=== PATIENT | female | born 1940 | race Hispanic/Latino ===

== ENCOUNTER 2019-05-25 13:59 | Inpatient (IN) | payer MEDICARE ==
--- NOTE | 2019-05-25 14:15 | Event Note ---
ED Screening Note Date of service: 05/25/19 Time: 14:12 ED Screening Note: 79 y/o female c/o swollen feet and legs. Having SOB. Was sent from Urgent care. This initial assessment/diagnostic orders/clinical plan/treatment(s) is/are subject to change based on patients health status, clinical progression and re- assessment by fellow clinical providers in the ED. Further treatment and workup at subsequent clinical providers discretion. Patient/guardian urged not to elope from the ED as their condition may be serious if not clinically assessed and managed. Initial orders include:
--- NOTE | 2019-05-25 15:01 | XRay Report ---
CHEST 2 VIEWS INDICATION / CLINICAL INFORMATION: sob. COMPARISON: None available. FINDINGS: SUPPORT DEVICES: None. HEART / MEDIASTINUM: Borderline cardiomegaly. LUNGS / PLEURA: Mild pulmonary vascular congestion but without yo interstitial pulmonary edema. No pneumothorax. No evidence of pneumonia or significant pleural effusion. ADDITIONAL FINDINGS: No significant additional findings. IMPRESSION: 1. Borderline cardiomegaly with mild pulmonary vascular congestion. Signer Name: Elaine Orosco MD Signed: 05/25/2019 2:56 PM Workstation Name: [id number]
[2019-05-25 15:06] LABS: Hematocrit 47.2 % (30.3-42.9); Hemoglobin 15.1 gm/dl (10.1-14.3); Mean Corpuscular HGB Conc 32 % (30-34); Mean Corpuscular Volume 88 fl (79-97); Platelet Count 223 K/mm3 (140-440); Red Blood Count 5.39 M/mm3 (3.65-5.03); Red Cell Distribution Width 15.8 % (13.2-15.2)
--- NOTE | 2019-05-25 15:19 | Emergency Department Report ---
ED General Adult HPI - General Chief complaint: Dyspnea/Respdistress Stated complaint: HEART RATE/DB Time Seen by Provider: 05/25/19 14:12 Source: patient Mode of arrival: Ambulatory Limitations: No Limitations - History of Present Illness Initial comments: This is an 79-year-old female who I believe is in residence in assisted living. She was brought to a local clinic by her denture laboratory technician today for evaluation of leg swelling of approximately 3 days' duration. The patient doesn't report acute dyspnea to me. She has not experienced paroxysmal nocturnal dyspnea. She occasionally does have chest pain but not recently. She reports a history of angioplasty 9 years ago but no history of congestive heart failure or venous thromboembolism. She states that both her legs are painful and swollen, particularly the left is worse. -: Gradual, days(s) Location: lower extremity Radiation: non-radiation Quality: aching Consistency: intermittent Worsens with: none Associated Symptoms: denies other symptoms Treatments Prior to Arrival: none - Related Data Home Medications Medication Instructions Recorded Confirmed Last Taken Aspirin EC [Halfprin EC] 81 mg PO QDAY 05/14/15 05/14/15 05/14/15 05:00 Allergies Allergy/AdvReac Type Severity Reaction Status Date / Time DEONDRE Inhibitors Allergy Severe Anaphylaxis Verified 05/14/15 07:00 diazepam [From Valium] Allergy Severe deep Verified 05/14/15 06:41 depression ED Review of Systems ROS: Stated complaint: HEART RATE/DB Other details as noted in HPI Constitutional: denies: chills, fever Eyes: denies: eye pain, eye discharge, vision change ENT: denies: ear pain, throat pain Respiratory: denies: cough, shortness of breath, wheezing Cardiovascular: edema. denies: chest pain, palpitations Endocrine: no symptoms reported Gastrointestinal: denies: abdominal pain, nausea, diarrhea Genitourinary: denies: urgency, dysuria, discharge Musculoskeletal: as per HPI, other. denies: back pain, joint swelling, arthralgia Skin: denies: rash, lesions Neurological: denies: headache, weakness, paresthesias Psychiatric: denies: anxiety, depression Hematological/Lymphatic: denies: easy bleeding, easy bruising ED Past Medical Hx - Past Medical History Previous Medical History?: Yes Hx Hypertension: Yes (1994, quit 2010 can't afford) Hx Heart Attack/AMI: Yes (08/2010) Hx Congestive Heart Failure: No - Surgical History Past Surgical History?: Yes Hx Coronary Stent: Yes (x1) - Social History Smoking Status: Current Every Day Smoker Substance Use Type: None - Medications Home Medications: Home Medications Medication Instructions Recorded Confirmed Last Taken Type Aspirin EC [Halfprin EC] 81 mg PO QDAY 05/14/15 05/14/15 05/14/15 05:00 History ED Physical Exam - General Limitations: No Limitations General appearance: alert, in no apparent distress - Head Head exam: Present: atraumatic, normocephalic - Eye Eye exam: Present: normal appearance - ENT ENT exam: Present: mucous membranes moist, other (facial drooping on left) - Neck Neck exam: Present: normal inspection. Absent: tenderness, meningismus - Respiratory Respiratory exam: Present: normal lung sounds bilaterally. Absent: respiratory distress - Cardiovascular Cardiovascular Exam: Present: regular rate, normal rhythm. Absent: systolic murmur, diastolic murmur, rubs, gallop - GI/Abdominal GI/Abdominal exam: Present: soft, normal bowel sounds. Absent: distended, tenderness, guarding, rebound, rigid - Extremities Exam Extremities exam: Present: normal capillary refill, other (bilateral leg swelling left side greater than right, circumferential, ankle edema, no yo cord or calf tenderness noted) - Back Exam Back exam: Present: normal inspection - Neurological Exam Neurological exam: Present: alert, oriented X3. Absent: CN II-XII intact (partial left facial paresis), motor sensory deficit - Psychiatric Psychiatric exam: Present: normal affect, normal mood - Skin Skin exam: Present: warm, dry, intact, normal color. Absent: rash ED Course Vital Signs 05/25/19 14:12 Temperature 97.7 F Pulse Rate 87 Respiratory 22 Rate Blood Pressure 205/104 O2 Sat by Pulse 97 Oximetry ED Medical Decision Making - Lab Data Result diagrams: 05/25/19 14:42 05/25/19 14:42 Laboratory Results - last 24 hr 05/25/19 05/25/19 05/25/19 14:42 14:42 14:42 WBC 8.6 RBC 5.39 H Hgb 15.1 H Hct 47.2 H MCV 88 MCH 28 MCHC 32 RDW 15.8 H Plt Count 223 Lymph % (Auto) Marking Machine Operator [place] % (Auto) Marking Machine Operator Eos % (Auto) Marking Machine Operator Baso % (Auto) Marking Machine Operator Lymph # Marking Machine Operator [place] # Marking Machine Operator Eos # Marking Machine Operator Baso # Marking Machine Operator Seg Neutrophils % Marking Machine Operator Seg Neutrophils # Marking Machine Operator PT INR APTT Sodium 141 Potassium 3.9 Chloride 103.8 Carbon Dioxide 24 Anion Gap 17 BUN 15 Creatinine 0.6 L Estimated GFR > 60 BUN/Creatinine Ratio 25 Glucose 131 H Calcium 9.1 Total Bilirubin 0.40 AST 17 ALT 13 Alkaline Phosphatase 82 Total Creatine Kinase 64 CK-MB (CK-2) 2.9 CK-MB (CK-2) Rel Index 4.5 H Troponin T NT-Pro-B Natriuret Pep 77493 H Total Protein 7.2 Albumin 3.8 L Albumin/Globulin Ratio 1.1 05/25/19 05/25/19 14:42 15:25 WBC RBC Hgb Hct MCV MCH MCHC RDW Plt Count Lymph % (Auto) [place] % (Auto) Eos % (Auto) Baso % (Auto) Lymph # [place] # Eos # Baso # Seg Neutrophils % Seg Neutrophils # PT 15.4 H INR 1.25 H APTT 29.7 Sodium Potassium Chloride Carbon Dioxide Anion Gap BUN Creatinine Estimated GFR BUN/Creatinine Ratio Glucose Calcium Total Bilirubin AST ALT Alkaline Phosphatase Total Creatine Kinase CK-MB (CK-2) CK-MB (CK-2) Rel Index Troponin T < 0.010 NT-Pro-B Natriuret Pep Total Protein Albumin Albumin/Globulin Ratio - EKG Data -: EKG Interpreted by Me EKG shows normal: sinus rhythm, axis, intervals, ST-T waves - EKG Data Interpretation: other (bundle-branch block) - Radiology Data Radiology results: report reviewed (no no DVT, chest x-ray with cardiomegaly and pulmonary venous congestion), image reviewed Critical care attestation.: If time is entered above; I have spent that time in minutes in the direct care of this critically ill patient, excluding procedure time. ED Disposition Clinical Impression: New onset of congestive heart failure, Left bundle branch block, Leg edema Disposition: OP ADMIT IP TO THIS HOSP Is pt being admited?: Yes Does the pt Need Aspirin: Yes Condition: Stable Time of Disposition: 17:28
[2019-05-25 15:27] LABS: Alanine Aminotransferase 13 units/L (7-56); Albumin 3.8 g/dL (3.9-5); BUN/Creatinine Ratio 25; Blood Urea Nitrogen 15 mg/dL (7-17); Calcium 9.1 mg/dL (8.4-10.2); Hemolysis Index 28
[2019-05-25 15:49] LABS: INR 1.25 (0.87-1.13)
[2019-05-25 15:50] LABS: Partial Thromboplastin Time 29.7 Sec. (24.2-36.6)
[2019-05-25 16:05] LABS: Creatine Kinase MB 2.9 ng/mL (0.0-4.0)
--- NOTE | 2019-05-25 16:40 | Vascular Lab Report ---
DUPLEX DOPPLER LOWER EXTREMITY VEINS, BILATERAL INDICATION: Bilateral lower extremity pain and swelling for 2 days. TECHNIQUE: Duplex doppler imaging was performed through the veins of both lower extremities using venous clari abeba and other maneuvers. COMPARISON: No relevant prior imaging study available. FINDINGS: Right Common Femoral vein: Negative. Right Superficial Femoral vein: Negative. Right Popliteal vein: Negative. Right Calf veins: Negative. Left Common Femoral vein: Negative. Left Superficial Femoral vein: Negative. Left Popliteal vein: Negative. Left Calf veins: Negative. Additional findings: None. IMPRESSION: No sonographic evidence for DVT in either lower extremity. Signer Name: Keyur Ernst MD Signed: 05/25/2019 4:35 PM Workstation Name: [id number]
[2019-05-25] MEDS ORDERED: BABY ASPIRIN PO ONE (17:28)
[2019-05-25] MEDS ORDERED: LASIX IV ONE (18:26)
[2019-05-25] MEDS ORDERED: NITRO-BID 2% TP ONE (18:26)
[2019-05-25] MEDS ORDERED: K-DUR PO ONE (18:27)
[2019-05-25 20:03] LABS: Bilirubin,Urine NEG (Negative); Blood,Urine NEG (Negative); Color,Urine Yellow (Yellow); Mucus,Urine FEW /HPF; Protein,Urine <15 mg/dL mg/dL (Negative); RBC,Urine < 1.0 /HPF (0.0-6.0); Urobilinogen,Urine < 2.0 mg/dL (<2.0); WBC,Urine < 1.0 /HPF (0.0-6.0)
--- NOTE | 2019-05-25 21:32 | History and Physical Report ---
History of Present Illness Chief complaint: I cant breathe, and my legs are huge History of present illness: 79 YO Female Assisted Living Facility Resident with Obesity, HTN, VT, Nicotine Dependence, CAD S/P Stent Placement presents to ED for evaluation. Pt states that she has experienced generalized weakness, and leg swelling over the past 3 weeks with worsening symptoms over the past 3-4 days. Pt acknowledges decreased exercise tolerance, dypsnea on exertion, mild dypsnea at rest, as well as 2 episodes of chest discomfort over the past 3 days. Pt initially sought medical care at Urgent Care and was instructed to seek further care at [facility]. Pt transported to [facility] via private vehicle. Pt seen and evaluated in ED and found to have symptoms consistent with CHF Decompensation as well as Obesity Hypoventilation. Pt admitted to telemetry. Cardiology team consulted in ED. Pt symptoms improved with diuresis, and supplemental oxygen. Pt denies fever, chills, CP, Palpitations, Trauma, Productive cough, Skin Rash, or recent ill contacts. No prior admission for review. All medication listed at time of admission was reconciled. Past History Past Medical History: acute VT, CAD, hypertension Past Surgical History: Other (Cardiac stent placement. ) Social history: single, smoking Family history: CAD, hypertension Medications and Allergies Allergies Allergy/AdvReac Type Severity Reaction Status Date / Time DEONDRE Inhibitors Allergy Severe Anaphylaxis Verified 05/14/15 07:00 diazepam [From Valium] Allergy Severe deep Verified 05/14/15 06:41 depression Home Medications Medication Instructions Recorded Confirmed Last Taken Type Aspirin EC [Halfprin EC] 81 mg PO QDAY 05/14/15 05/25/19 05/14/15 05:00 History Review of Systems Constitutional: weight gain, no weight loss, no fever, no chills Ears, nose, mouth and throat: no ear pain, no ear discharge, no tinnitis, no nasal congestion Cardiovascular: shortness of breath, dyspnea on exertion, leg edema, decreased exercise tolerance, no chest pain, no rapid/irregular heart beat, no syncope Respiratory: no cough, no cough with sputum, no excessive sputum, no hemoptysis Gastrointestinal: no abdominal pain, no nausea, no diarrhea, no constipation, no change in bowel habits Genitourinary Female: no pelvic pain, no flank pain, no menorrhagia Rectal: no pain, no incontinence, no bleeding Musculoskeletal: no neck stiffness, no neck pain, no shooting arm pain, no arm numbness/tingling, no shooting leg pain, no leg numbness/tingling, no redness of joints Integumentary: no rash, no pruritis, no redness, no sores, no wounds Neurological: no paralysis, no weakness, no tingling, no seizures Psychiatric: no anxiety, no memory loss, no change in sleep habits, no sleep disturbances, no insomnia, no change in appetite Endocrine: no cold intolerance, no heat intolerance, no polyphagia, no excessive thirst, no polydipsia, no polyuria, no nocturia, no excessive sweating Hematologic/Lymphatic: no easy bruising, no easy bleeding, no lymphadenopathy Allergic/Immunologic: no urticaria, no allergic rhinitis, no wheezing, no angioedema Exam - Constitutional Vitals: Temp Pulse Resp BP Pulse Ox 97.7 F 69 17 196/89 98 05/25/19 14:12 05/25/19 20:15 05/25/19 20:15 05/25/19 20:15 05/25/19 20:15 General appearance: Present: mild distress - EENT Eyes: Present: PERRL ENT: hearing intact, clear oral mucosa - Neck Neck: Present: supple, normal ROM - Respiratory Respiratory effort: normal Respiratory: bilateral: diminished, rhonchi - Cardiovascular Heart Sounds: Present: S1 & S2. Absent: rub, click - Extremities Extremities: pulses symmetrical Extremity abnormal: edema Peripheral Pulses: within normal limits - Abdominal General gastrointestinal: Present: soft, non-tender, non-distended, normal bowel sounds Female genitourinary: Present: normal - Integumentary Integumentary: Present: clear, warm, dry - Musculoskeletal Musculoskeletal: gait normal, strength equal bilaterally - Psychiatric Psychiatric: appropriate mood/affect, intact judgment & insight - Neurologic Neurologic: CNII-XII intact, moves all extremities Results - Labs CBC & Chem 7: 05/26/19 07:41 05/26/19 07:41 Labs: Abnormal lab results 05/25/19 05/25/19 05/25/19 Range/Units 14:42 14:42 14:42 RBC 5.39 H (3.65-5.03) M/mm3 Hgb 15.1 H (10.1-14.3) gm/dl Hct 47.2 H (30.3-42.9) % RDW 15.8 H (13.2-15.2) % PT (12.2-14.9) Sec. INR (0.87-1.13) Creatinine 0.6 L (0.7-1.2) mg/dL Glucose 131 H (65-100) mg/dL CK-MB (CK-2) Rel Index 4.5 H (0-4) NT-Pro-B Natriuret Pep 44431 H (0-900) pg/mL Albumin 3.8 L (3.9-5) g/dL 05/25/19 Range/Units 15:25 RBC (3.65-5.03) M/mm3 Hgb (10.1-14.3) gm/dl Hct (30.3-42.9) % RDW (13.2-15.2) % PT 15.4 H (12.2-14.9) Sec. INR 1.25 H (0.87-1.13) Creatinine (0.7-1.2) mg/dL Glucose (65-100) mg/dL CK-MB (CK-2) Rel Index (0-4) NT-Pro-B Natriuret Pep (0-900) pg/mL Albumin (3.9-5) g/dL Assessment and Plan - Patient Problems (1) CHF (congestive heart failure) Current Visit: Yes Status: Acute Qualifiers: Heart failure type: systolic Heart failure chronicity: acute Qualified Code(s): I50.21 - Acute systolic (congestive) heart failure Plan to address problem: Admit to telemetry, Echo, Cardiology consulted in ED, Thyroid panel, magnesium, Chest xray, bnp, supplemental oxygen, Afterload reduction, pulse oximetry. (2) HTN (hypertension) Current Visit: Yes Status: Acute Qualifiers: Hypertension type: essential hypertension Qualified Code(s): I10 - Essential (primary) hypertension Plan to address problem: Monitor BP q shift, continue medical management (3) Nicotine dependence Current Visit: Yes Status: Acute Qualifiers: Substance use status: in withdrawal Plan to address problem: smoking cessation counseling +15min, supportive care. (4) CAD (coronary artery disease) Current Visit: Yes Status: Acute Qualifiers: Associated angina: with stable angina Plan to address problem: Risk factor reduction, low cholesterol diet, statin therapy as indicated, smoking cessation (5) Obesity hypoventilation syndrome Current Visit: Yes Status: Acute Plan to address problem: supplemental oxygen, nebulizer therapy, NIPPV as clinically indicated, Outpatient pulmonary F/U for sleep study (6) DVT prophylaxis Current Visit: Yes Status: Acute Plan to address problem: SCD to BLE while in bed,
[2019-05-25] MEDS ORDERED: TYLENOL PO PRN (21:43)
[2019-05-25] MEDS ORDERED: PROVENTIL IH PRN (21:43)
[2019-05-25] MEDS ORDERED: SODIUM CHLORIDE FLUSH SYRINGE 10 ML IV PRN (21:43)
[2019-05-25] MEDS ORDERED: ZOFRAN IV PRN (21:43)
[2019-05-25] MEDS ORDERED: APRESOLINE IV PRN (21:50)
[2019-05-25] MEDS: LOPRESSOR PO SCH (23:31)
[2019-05-25] MEDS: PEPCID PO SCH (23:32)
[2019-05-25] MEDS: SODIUM CHLORIDE FLUSH SYRINGE 10 ML IV SCH (23:32)
[2019-05-25] MEDS ORDERED: PEPCID ONE (23:41)
[2019-05-25 23:50] LABS: Free T4 (Free Thyroxine) 1.5 ng/dL (0.76-1.46)
[2019-05-26] MEDS ORDERED: LASIX IV SCH (06:00)
[2019-05-26 08:19] LABS: Basophils # (Auto) 0.1 K/mm3 (0.0-0.1); Basophils % (Auto) 0.7 % (0.0-1.8); Eosinophils # (Auto) 0.1 K/mm3 (0.0-0.4); Eosinophils % (Auto) 1.3 % (0.0-4.3); Hematocrit 41.6 % (30.3-42.9); Hemoglobin 13.8 gm/dl (10.1-14.3); Lymphocytes # (Auto) 0.7 K/mm3 (1.2-5.4); Lymphocytes % (Auto) 9.4 % (13.4-35.0); Mean Corpuscular HGB Conc 33 % (30-34); Mean Corpuscular Volume 84 fl (79-97); Monocytes # (Auto) 0.6 K/mm3 (0.0-0.8); Monocytes % (Auto) 8.1 % (0.0-7.3); Platelet Count 164 K/mm3 (140-440); Red Blood Count 4.93 M/mm3 (3.65-5.03); Red Cell Distribution Width 14.7 % (13.2-15.2)
[2019-05-26 08:42] LABS: Alanine Aminotransferase 11 units/L (7-56); Albumin 3.6 g/dL (3.9-5); BUN/Creatinine Ratio 20; Blood Urea Nitrogen 14 mg/dL (7-17); Calcium 8.7 mg/dL (8.4-10.2); Hemolysis Index 0
--- NOTE | 2019-05-26 10:16 | Progress Note ---
Assessment and Plan Assessment and plan: 79-year-old woman who presented to the hospital with shortness of breath and lower extremity edema Past medical history includes history of CAD/[place], hypertension, status post stents CHF exacerbation Continue IV diuresis, follow-up echo Hypertension Optimize BP meds Tobacco abuse/dependence Smoking cessation counseling performed for 10 minutes, nicotine patches when necessary CAD -Continue chronic her meds next DVT prophylaxis with Lovenox History Interval history: Review of systems Constitutional: No fevers, no malaise, no joint pains CVS: No chest pain, complaining of orthopnea, dyspnea on exertion and pedal edema GI: No abdominal pain, no diarrhea, no vomiting, no constipation Respiratory: no wheezing, no coughing Hospitalist Physical - Physical exam Narrative exam: General.: Appears well, no distress, nontoxic HEENT: Moist mucous membranes, extraocular muscles intact, no lymphadenopathy Neck: supple Cardiac: S1-S2 heard Lungs: Bibasilar crackles Abdomen: soft , nontender, nondistended, bowel sounds positive Extremities: Bipedal edema Skin: no rash or lesions Neurologic: no gross focal deficits Psych: calm, and cooperative - Constitutional Vitals: Temp Pulse Resp BP Pulse Ox 97.7 F 84 18 155/70 94 05/26/19 07:53 05/26/19 07:53 05/26/19 07:53 05/26/19 07:53 05/26/19 10:00 General appearance: Present: mild distress Results - Labs CBC & Chem 7: 05/26/19 07:41 05/26/19 07:41 Labs: Laboratory Last Values WBC 7.5 K/mm3 (4.5-11.0) 05/26/19 07:41 RBC 4.93 M/mm3 (3.65-5.03) 05/26/19 07:41 Hgb 13.8 gm/dl (10.1-14.3) 05/26/19 07:41 Hct 41.6 % (30.3-42.9) 05/26/19 07:41 MCV 84 fl (79-97) 05/26/19 07:41 MCH 28 pg (28-32) 05/26/19 07:41 MCHC 33 % (30-34) 05/26/19 07:41 RDW 14.7 % (13.2-15.2) 05/26/19 07:41 Plt Count 164 K/mm3 (140-440) 05/26/19 07:41 Lymph % (Auto) 9.4 % (13.4-35.0) L 05/26/19 07:41 [place] % (Auto) 8.1 % (0.0-7.3) H 05/26/19 07:41 Eos % (Auto) 1.3 % (0.0-4.3) 05/26/19 07:41 Baso % (Auto) 0.7 % (0.0-1.8) 05/26/19 07:41 Lymph # 0.7 K/mm3 (1.2-5.4) L 05/26/19 07:41 [place] # 0.6 K/mm3 (0.0-0.8) 05/26/19 07:41 Eos # 0.1 K/mm3 (0.0-0.4) 05/26/19 07:41 Baso # 0.1 K/mm3 (0.0-0.1) 05/26/19 07:41 Seg Neutrophils % 80.5 % (40.0-70.0) H 05/26/19 07:41 Seg Neutrophils # 6.0 K/mm3 (1.8-7.7) 05/26/19 07:41 PT 15.4 Sec. (12.2-14.9) H 05/25/19 15:25 INR 1.25 (0.87-1.13) H 05/25/19 15:25 APTT 29.7 Sec. (24.2-36.6) 05/25/19 15:25 Sodium 142 mmol/L (137-145) 05/26/19 07:41 Potassium 3.7 mmol/L (3.6-5.0) 05/26/19 07:41 Chloride 101.3 mmol/L (98-107) 05/26/19 07:41 Carbon Dioxide 30 mmol/L (22-30) 05/26/19 07:41 14 mmol/L 05/26/19 07:41 BUN 14 mg/dL (7-17) 05/26/19 07:41 0.7 mg/dL (0.7-1.2) 05/26/19 07:41 Estimated GFR > 60 ml/min 05/26/19 07:41 20 % 05/26/19 07:41 Glucose 94 mg/dL (65-100) 05/26/19 07:41 Calcium 8.7 mg/dL (8.4-10.2) 05/26/19 07:41 Magnesium 2.00 mg/dL (1.7-2.3) 05/25/19 22:56 0.50 mg/dL (0.1-1.2) 05/26/19 07:41 AST 14 units/L (5-40) 05/26/19 07:41 ALT 11 units/L (7-56) 05/26/19 07:41 78 units/L (35-129) 05/26/19 07:41 64 units/L (30-135) 05/25/19 14:42 CK-MB (CK-2) 2.9 ng/mL (0.0-4.0) 05/25/19 14:42 CK-MB (CK-2) Rel Index 4.5 (0-4) H 05/25/19 14:42 < 0.010 ng/mL (0.00-0.029) 05/25/19 14:42 NT-Pro-B Natriuret Pep 43749 pg/mL (0-900) H 05/25/19 14:42 6.5 g/dL (6.3-8.2) 05/26/19 07:41 3.6 g/dL (3.9-5) L 05/26/19 07:41 1.2 % 05/26/19 07:41 TSH 2.310 mlU/mL (0.270-4.200) 05/25/19 22:56 Free T4 1.50 ng/dL (0.76-1.46) H 05/25/19 22:56 Yellow (Yellow) 05/25/19 19:15 Clear (Clear) 05/25/19 19:15 7.0 (5.0-7.0) 05/25/19 19:15 Ur Specific [place] 1.015 (1.003-1.030) 05/25/19 19:15 <15 mg/dl mg/dL (Negative) 05/25/19 19:15 Neg mg/dL (Negative) 05/25/19 19:15 Neg mg/dL (Negative) 05/25/19 19:15 Neg (Negative) 05/25/19 19:15 Neg (Negative) 05/25/19 19:15 Neg (Negative) 05/25/19 19:15 < 2.0 mg/dL (<2.0) 05/25/19 19:15 Ur Leukocyte Esterase Neg (Negative) 05/25/19 19:15 < 1.0 /HPF (0.0-6.0) 05/25/19 19:15 < 1.0 /HPF (0.0-6.0) 05/25/19 19:15 U Epithel Cells (Auto) 1.0 /HPF (0-13.0) 05/25/19 19:15 Few /HPF 05/25/19 19:15 Active Medications - Current Medications Current Medications: Generic Name Dose Route Start Last Admin Trade Name Freq PRN Reason Stop Dose Admin Acetaminophen 650 mg 05/25/19 21:43 Tylenol PO Q4H PRN Pain MILD(1-3)/Fever >100.5/CHANCE Albuterol 2.5 mg 05/25/19 21:43 Proventil IH Q4HRT PRN Shortness Of Breath Aspirin 81 mg 05/26/19 10:00 Halfprin Ec PO QDAY TIANA Enoxaparin Sodium 40 mg 05/26/19 22:00 Lovenox SUB-Q QDAY@2200 TIANA Famotidine 20 mg 05/25/19 22:00 05/25/19 23:32 Pepcid PO 20 mg BID TIANA Administration Furosemide 20 mg 05/26/19 06:00 05/26/19 05:30 Lasix IV 20 mg BID@0600,1800 TIANA Administration Hydralazine HCl 10 mg 05/25/19 21:50 Apresoline IV Q6H PRN Hypertension Metoprolol Tartrate 12.5 mg 05/25/19 22:00 05/25/19 23:31 Lopressor PO Not Given BID TIANA Ondansetron HCl 4 mg 05/25/19 21:43 Zofran IV Q8H PRN Nausea And Vomiting Sodium Chloride 10 ml 05/25/19 22:00 05/25/19 23:32 Sodium Chloride Flush Syringe 10 Ml IV 10 ml BID TIANA Administration Sodium Chloride 10 ml 05/25/19 21:43 Sodium Chloride Flush Syringe 10 Ml IV PRN PRN LINE FLUSH
[2019-05-26] MEDS: LOPRESSOR PO SCH ×2 (10:18→22:22)
[2019-05-26] MEDS: SODIUM CHLORIDE FLUSH SYRINGE 10 ML IV SCH ×2 (10:18→22:23)
[2019-05-26] MEDS: PEPCID PO SCH ×2 (10:18→22:22)
[2019-05-26] MEDS: HALFPRIN EC PO SCH (10:18)
--- NOTE | 2019-05-26 10:58 | Consultation ---
History of Present Illness Consult date: 05/26/19 Consult reason: congestive heart failure History of present illness: Impression Exam, CXR, lab findings (NT-probnp) suggest systolic CHF pt symptoms improved after diuresis She has h/o CAD s/p stent in [place] HTN Current smoker Plan Medical therapy for ischemic CMP Echocardiogram to assess EF Lexiscan MPI to assess ischemic threshold Past History Past Medical History: acute [place], CAD, hypertension Past Surgical History: Other (Cardiac stent placement. ) Social history: single, smoking Family history: CAD, hypertension Medications and Allergies Allergies Allergy/AdvReac Type Severity Reaction Status Date / Time DEONDRE Inhibitors Allergy Severe Anaphylaxis Verified 05/14/15 07:00 diazepam [From Valium] Allergy Severe deep Verified 05/14/15 06:41 depression Home Medications Medication Instructions Recorded Confirmed Last Taken Type Aspirin EC [Halfprin EC] 81 mg PO QDAY 05/14/15 05/25/19 05/14/15 05:00 History Active Meds: Active Medications Acetaminophen (Tylenol) 650 mg PO Q4H PRN PRN Reason: Pain MILD(1-3)/Fever >100.5/CHANCE Albuterol (Proventil) 2.5 mg IH Q4HRT PRN PRN Reason: Shortness Of Breath Aspirin (Halfprin Ec) 81 mg PO QDAY [facility] Last Admin: 05/26/19 10:18 Dose: 81 mg Documented by: Enoxaparin Sodium (Lovenox) 40 mg SUB-Q QDAY@2200 [facility] Famotidine (Pepcid) 20 mg PO BID [facility] Last Admin: 05/26/19 10:18 Dose: 20 mg Documented by: Furosemide (Lasix) 40 mg IV BID@0600,1800 [facility] Hydralazine HCl (Apresoline) 10 mg IV Q6H PRN PRN Reason: Hypertension Metoprolol Tartrate (Lopressor) 12.5 mg PO BID [facility] Last Admin: 05/26/19 10:18 Dose: 12.5 mg Documented by: Ondansetron HCl (Zofran) 4 mg IV Q8H PRN PRN Reason: Nausea And Vomiting Sodium Chloride (Sodium Chloride Flush Syringe 10 Ml) 10 ml IV BID [facility] Last Admin: 05/26/19 10:18 Dose: 10 ml Documented by: Sodium Chloride (Sodium Chloride Flush Syringe 10 Ml) 10 ml IV PRN PRN PRN Reason: LINE FLUSH Review of Systems All systems: negative (stated in Impression, symptoms of CHF mainly dyspnea) Physical Examination Vital Signs Resp Pulse Ox 15 100 05/25/19 14:06 05/25/19 14:06 General appearance: no acute distress HEENT: Positive: PERRL, EOMI Neck: Positive: neck supple, JVD/HJR Cardiac: Positive: Reg Rate and Rhythm, S1/S2 Lungs: Positive: Normal Exam Neuro: Positive: Grossly Intact Abdomen: Positive: Unremarkable, Soft Extremities: Present: +1 Edema Results 05/26/19 07:41 05/26/19 07:41 Cardiac Enzymes 05/25/19 05/25/19 05/26/19 Range/Units 14:42 14:42 07:41 AST 17 14 (5-40) units/L CK-MB (CK-2) 2.9 (0.0-4.0) ng/mL Coagulation 05/25/19 Range/Units 15:25 PT 15.4 H (12.2-14.9) Sec. INR 1.25 H (0.87-1.13) APTT 29.7 (24.2-36.6) Sec. CBC 05/25/19 05/26/19 Range/Units 14:42 07:41 WBC 8.6 7.5 (4.5-11.0) K/mm3 RBC 5.39 H 4.93 (3.65-5.03) M/mm3 Hgb 15.1 H 13.8 (10.1-14.3) gm/dl Hct 47.2 H 41.6 (30.3-42.9) % Plt Count 223 164 (140-440) K/mm3 Lymph # Implementation Consultant 0.7 L [place] # Implementation Consultant 0.6 Eos # Implementation Consultant 0.1 Baso # Implementation Consultant 0.1 Comprehensive Metabolic Panel 05/25/19 05/26/19 Range/Units 14:42 07:41 Sodium 141 142 (137-145) mmol/L Potassium 3.9 3.7 (3.6-5.0) mmol/L Chloride 103.8 101.3 (98-107) mmol/L Carbon Dioxide 24 30 (22-30) mmol/L BUN 15 14 (7-17) mg/dL Creatinine 0.6 L 0.7 (0.7-1.2) mg/dL Glucose 131 H 94 (65-100) mg/dL Calcium 9.1 8.7 (8.4-10.2) mg/dL AST 17 14 (5-40) units/L ALT 13 11 (7-56) units/L Alkaline Phosphatase 82 78 (35-129) units/L Total Protein 7.2 6.5 (6.3-8.2) g/dL Albumin 3.8 L 3.6 L (3.9-5) g/dL
[2019-05-26] MEDS: LASIX IV SCH (17:42)
[2019-05-26] MEDS: LOVENOX SUB-Q SCH (22:23)
[2019-05-27] MEDS: LASIX IV SCH ×2 (05:30→18:38)
[2019-05-27] MEDS ORDERED: LEXISCAN IV ONE (07:20)
--- NOTE | 2019-05-27 08:35 | Progress Note ---
Assessment and Plan Assessment and plan: 79-year-old woman who presented to the hospital with shortness of breath and lower extremity edema Past medical history includes history of CAD/IL, hypertension, status post stents CHF exacerbation Continue IV diuresis, follow-up echo, patient refused stress test today, expl ained to her the benefit of the test and she is now agreeable to it Hypertension Optimize BP meds Tobacco abuse/dependence Smoking cessation counseling performed for 10 minutes, nicotine patches when necessary CAD -Continue chronic her meds next DVT prophylaxis with Lovenox History Interval history: Review of systems Constitutional: No fevers, no malaise, no joint pains CVS: No chest pain, orthopnea, dyspnea on exertion and pedal edema are much improoved GI: No abdominal pain, no diarrhea, no vomiting, no constipation Respiratory: no wheezing, no coughing Hospitalist Physical - Physical exam Narrative exam: General.: Appears well, no distress, nontoxic HEENT: Moist mucous membranes, extraocular muscles intact, no lymphadenopathy Neck: supple Cardiac: S1-S2 heard Lungs: Bibasilar crackles Abdomen: soft , nontender, nondistended, bowel sounds positive Extremities: Bipedal edema, interval reduction Skin: no rash or lesions Neurologic: no gross focal deficits Psych: calm, and cooperative - Constitutional Vitals: Temp Pulse Resp BP Pulse Ox 97.6 F 70 22 143/59 93 05/27/19 05:23 05/27/19 05:23 05/27/19 05:23 05/27/19 05:23 05/27/19 05:23 General appearance: Present: mild distress Results - Labs CBC & Chem 7: 05/26/19 07:41 05/26/19 07:41 Labs: Laboratory Last Values WBC 7.5 K/mm3 (4.5-11.0) 05/26/19 07:41 RBC 4.93 M/mm3 (3.65-5.03) 05/26/19 07:41 Hgb 13.8 gm/dl (10.1-14.3) 05/26/19 07:41 Hct 41.6 % (30.3-42.9) 05/26/19 07:41 MCV 84 fl (79-97) 05/26/19 07:41 MCH 28 pg (28-32) 05/26/19 07:41 MCHC 33 % (30-34) 05/26/19 07:41 RDW 14.7 % (13.2-15.2) 05/26/19 07:41 Plt Count 164 K/mm3 (140-440) 05/26/19 07:41 Lymph % (Auto) 9.4 % (13.4-35.0) L 05/26/19 07:41 [place] % (Auto) 8.1 % (0.0-7.3) H 05/26/19 07:41 Eos % (Auto) 1.3 % (0.0-4.3) 05/26/19 07:41 Baso % (Auto) 0.7 % (0.0-1.8) 05/26/19 07:41 Lymph # 0.7 K/mm3 (1.2-5.4) L 05/26/19 07:41 [place] # 0.6 K/mm3 (0.0-0.8) 05/26/19 07:41 Eos # 0.1 K/mm3 (0.0-0.4) 05/26/19 07:41 Baso # 0.1 K/mm3 (0.0-0.1) 05/26/19 07:41 Seg Neutrophils % 80.5 % (40.0-70.0) H 05/26/19 07:41 Seg Neutrophils # 6.0 K/mm3 (1.8-7.7) 05/26/19 07:41 PT 15.4 Sec. (12.2-14.9) H 05/25/19 15:25 INR 1.25 (0.87-1.13) H 05/25/19 15:25 APTT 29.7 Sec. (24.2-36.6) 05/25/19 15:25 Sodium 142 mmol/L (137-145) 05/26/19 07:41 Potassium 3.7 mmol/L (3.6-5.0) 05/26/19 07:41 Chloride 101.3 mmol/L (98-107) 05/26/19 07:41 Carbon Dioxide 30 mmol/L (22-30) 05/26/19 07:41 14 mmol/L 05/26/19 07:41 BUN 14 mg/dL (7-17) 05/26/19 07:41 0.7 mg/dL (0.7-1.2) 05/26/19 07:41 Estimated GFR > 60 ml/min 05/26/19 07:41 20 % 05/26/19 07:41 Glucose 94 mg/dL (65-100) 05/26/19 07:41 POC Glucose 95 (70-105) 05/27/19 05:42 Calcium 8.7 mg/dL (8.4-10.2) 05/26/19 07:41 Magnesium 2.00 mg/dL (1.7-2.3) 05/25/19 22:56 0.50 mg/dL (0.1-1.2) 05/26/19 07:41 AST 14 units/L (5-40) 05/26/19 07:41 ALT 11 units/L (7-56) 05/26/19 07:41 78 units/L (35-129) 05/26/19 07:41 64 units/L (30-135) 05/25/19 14:42 CK-MB (CK-2) 2.9 ng/mL (0.0-4.0) 05/25/19 14:42 CK-MB (CK-2) Rel Index 4.5 (0-4) H 05/25/19 14:42 < 0.010 ng/mL (0.00-0.029) 05/25/19 14:42 NT-Pro-B Natriuret Pep 70255 pg/mL (0-900) H 05/25/19 14:42 6.5 g/dL (6.3-8.2) 05/26/19 07:41 3.6 g/dL (3.9-5) L 05/26/19 07:41 1.2 % 05/26/19 07:41 TSH 2.310 mlU/mL (0.270-4.200) 05/25/19 22:56 Free T4 1.50 ng/dL (0.76-1.46) H 05/25/19 22:56 Yellow (Yellow) 05/25/19 19:15 Clear (Clear) 05/25/19 19:15 7.0 (5.0-7.0) 05/25/19 19:15 Ur Specific [place] 1.015 (1.003-1.030) 05/25/19 19:15 <15 mg/dl mg/dL (Negative) 05/25/19 19:15 Neg mg/dL (Negative) 05/25/19 19:15 Neg mg/dL (Negative) 05/25/19 19:15 Neg (Negative) 05/25/19 19:15 Neg (Negative) 05/25/19 19:15 Neg (Negative) 05/25/19 19:15 < 2.0 mg/dL (<2.0) 05/25/19 19:15 Ur Leukocyte Esterase Neg (Negative) 05/25/19 19:15 < 1.0 /HPF (0.0-6.0) 05/25/19 19:15 < 1.0 /HPF (0.0-6.0) 05/25/19 19:15 U Epithel Cells (Auto) 1.0 /HPF (0-13.0) 05/25/19 19:15 Few /HPF 05/25/19 19:15 Active Medications - Current Medications Current Medications: Generic Name Dose Route Start Last Admin Trade Name Stephanie PRN Reason Stop Dose Admin Acetaminophen 650 mg 05/25/19 21:43 Tylenol PO Q4H PRN Pain MILD(1-3)/Fever >100.5/CHANCE Albuterol 2.5 mg 05/25/19 21:43 Proventil IH Q4HRT PRN Shortness Of Breath Aspirin 81 mg 05/26/19 10:00 05/26/19 10:18 Halfprin Ec PO 81 mg QDAY TIANA Administration Enoxaparin Sodium 40 mg 05/26/19 22:00 05/26/19 22:23 Lovenox SUB-Q Not Given QDAY@2200 TIANA Famotidine 20 mg 05/25/19 22:00 05/26/19 22:22 Pepcid PO 20 mg BID TIANA Administration Furosemide 40 mg 05/26/19 10:17 05/27/19 05:30 Lasix IV 40 mg BID@0600,1800 TIANA Administration Hydralazine HCl 10 mg 05/25/19 21:50 05/27/19 03:19 Apresoline IV 10 mg Q6H PRN Administration Hypertension Hydralazine HCl 10 mg 05/26/19 22:10 Apresoline IV Q4H PRN BP >160/100 Losartan Potassium 12.5 mg 05/27/19 10:00 Cozaar PO QDAY TIANA Metoprolol Tartrate 12.5 mg 05/25/19 22:00 05/26/19 22:22 Lopressor PO 12.5 mg BID TIANA Administration Ondansetron HCl 4 mg 05/25/19 21:43 Zofran IV Q8H PRN Nausea And Vomiting Sodium Chloride 10 ml 05/25/19 22:00 05/26/19 22:23 Sodium Chloride Flush Syringe 10 Ml IV 10 ml BID TIANA Administration Sodium Chloride 10 ml 05/25/19 21:43 Sodium Chloride Flush Syringe 10 Ml IV PRN PRN LINE FLUSH
[2019-05-27] MEDS: LOPRESSOR PO SCH ×2 (10:02→21:33)
[2019-05-27] MEDS: COZAAR PO SCH (10:03)
[2019-05-27] MEDS: PEPCID PO SCH ×2 (10:04→21:35)
[2019-05-27] MEDS: SODIUM CHLORIDE FLUSH SYRINGE 10 ML IV SCH ×2 (10:05→21:36)
[2019-05-27] MEDS: HALFPRIN EC PO SCH (10:05)
--- NOTE | 2019-05-27 13:59 | Progress Note ---
Assessment and Plan - Patient Problems (1) CHF (congestive heart failure) Current Visit: Yes Status: Acute Qualifiers: Heart failure type: systolic Heart failure chronicity: acute Qualified Code(s): I50.21 - Acute systolic (congestive) heart failure Plan to address problem: It will be noted that the echocardiogram shows a dilated cardiomyopathy, with left ventricle ejection fraction 20-25%. The chronicity of her cardiomyopathy is uncertain. Most recent cardiac evaluation was 9 years ago when she lived in [place], at that time states that she underwent coronary stent placement. Since then, including the 5 years that she has lived in [place], she has not followed up with a physician. We will proceed with a thallium stress test in the morning. We will recommend guideline directed to medical therapy for systolic heart failure and coronary artery disease. Subjective Date of service: 05/27/19 Interval history: Patient is comfortable, no further chest pain, no cardiac complaints. She declined the planned stress test today, stating that she felt too "weak", and the test has been rescheduled for tomorrow morning. It will be noted that the echocardiogram shows a dilated cardiomyopathy, with left ventricle ejection fraction 20-25%. The chronicity of her cardiomyopathy is uncertain. Most recent cardiac evaluation was 9 years ago when she lived in [place], at that time states that she underwent coronary stent placement. Since then, including the 5 years that she has lived in [place], she has not followed up with a physician. Objective Vital Signs Temp Pulse Pulse Resp Resp BP Pulse Ox 05/27/19 11:26 72 149/77 92 05/27/19 10:03 70 170/53 05/27/19 10:01 67 170/53 93 05/27/19 10:00 93 05/27/19 05:23 97.6 F 70 22 143/59 93 05/27/19 03:19 68 168/72 05/27/19 03:11 97.7 F 68 20 168/72 92 05/26/19 23:44 98.4 F 05/26/19 23:43 68 20 163/67 92 05/26/19 22:22 71 186/77 05/26/19 22:00 20 05/26/19 21:05 62 18 05/26/19 20:56 98.2 F 05/26/19 20:54 71 18 186/77 96 05/26/19 20:52 94 08/25/19 19:04 67 05/26/19 15:13 98.3 F 73 18 140/55 93 05/26/19 14:00 65 - Physical Examination General: No Apparent Distress HEENT: Positive: PERRL, EOMI Neck: Positive: neck supple, JVD/HJR Cardiac: Positive: Reg Rate and Rhythm Lungs: Positive: Decreased Breath Sounds Neuro: Positive: Grossly Intact Abdomen: Positive: Unremarkable, Soft Skin: Positive: Clear Extremities: Present: edema (trace)
[2019-05-27] MEDS: LOVENOX SUB-Q SCH ×2 (21:35→21:36)
[2019-05-28] MEDS: APRESOLINE IV PRN ×2 (04:27→12:04)
[2019-05-28] MEDS: LASIX IV SCH (06:50)
[2019-05-28] MEDS ORDERED: LEXISCAN IV ONE ×2 (06:55→06:59)
[2019-05-28 07:59] LABS: Hematocrit 49.5 % (30.3-42.9); Hemoglobin 16.5 gm/dl (10.1-14.3); Mean Corpuscular HGB Conc 33 % (30-34); Mean Corpuscular Volume 85 fl (79-97); Platelet Count 227 K/mm3 (140-440); Red Blood Count 5.86 M/mm3 (3.65-5.03); Red Cell Distribution Width 15.1 % (13.2-15.2)
[2019-05-28 08:06] LABS: BUN/Creatinine Ratio 30; Blood Urea Nitrogen 27 mg/dL (7-17); Calcium 9.3 mg/dL (8.4-10.2); Hemolysis Index 22
--- NOTE | 2019-05-28 09:35 | Progress Note ---
Assessment and Plan 79-year-old woman who presented to the hospital with shortness of breath and lower extremity edema Past medical history includes history of CAD/CA, hypertension, status post stents - CHF exacerbation EF 20-25 % Continue IV diuresis, ACEI, BB and statins - Hypertension Optimize BP meds - Tobacco abuse/dependence Smoking cessation counseling performed for 10 minutes, nicotine patches when necessary - CAD Continue chronic her meds next DVT prophylaxis with Lovenox Time spent 32mins Subjective Date of service: 05/28/19 Principal diagnosis: CHF, CAD Interval history: Patient seen and examined. Still has swelling of the lower extremities. Objective - Exam Narrative Exam: Constitutional: Well-nourished well-developed. In no distress Head: Normocephalic atraumatic Eyes: Pupils are equal round and reactive to light Nose: No enlarged turbinates, no septal deviation. Mouth: Moist mucous membranes. Neck: Supple no thyromegaly. No bruit. No JVD Heart: Regular rate and rhythm, S1-S2 normal. No rubs murmurs or gallop Lungs: Clear to auscultation bilaterally. no rales or rhonchi Abdomen: Soft, nontender. Bowel sound are present. Extremities: No edema, no cyanosis, no clubbing. Neuro: Alert oriented Oriented x3. No focal sensory or motor deficit. Skin: No rashes or hyperpigmented spots Musculoskeletal system: No joint pain or swelling Hematological: No petechia or subcutanous hemorrhages. Immunological: No multiple septic spots on the skin Lymphatic: No generalized lymphadenopathy Psychiatry: Euthymic. Calm. - Constitutional Vitals: Vital Signs - 12hr 05/27/19 05/28/19 05/28/19 23:01 03:36 05:56 Temperature 98.0 F 97.8 F 98.0 F Pulse Rate 72 70 62 Respiratory 16 18 22 Rate Blood Pressure 165/76 174/68 151/70 O2 Sat by Pulse 92 91 92 Oximetry 05/28/19 08:29 Temperature 97.9 F Pulse Rate 64 Respiratory 18 Rate Blood Pressure 151/53 O2 Sat by Pulse 92 Oximetry - Labs CBC & Chem 7: 05/28/19 07:37 05/28/19 07:37 Labs: Abnormal lab results 05/28/19 05/28/19 Range/Units 07:37 07:37 RBC 5.86 H (3.65-5.03) M/mm3 Hgb 16.5 H (10.1-14.3) gm/dl Hct 49.5 H D (30.3-42.9) % Chloride 96.9 L (98-107) mmol/L Carbon Dioxide 31 H (22-30) mmol/L BUN 27 H (7-17) mg/dL Glucose 113 H (65-100) mg/dL
[2019-05-28] MEDS: COZAAR PO SCH (12:02)
[2019-05-28] MEDS: LOPRESSOR PO SCH (12:02)
[2019-05-28] MEDS: HALFPRIN EC PO SCH (12:03)
[2019-05-28] MEDS: PEPCID PO SCH (12:03)
[2019-05-28] MEDS: SODIUM CHLORIDE FLUSH SYRINGE 10 ML IV SCH (12:03)
--- NOTE | 2019-05-28 12:12 | Treadmill Report ---
THALLIUM STRESS TEST LEFT VENTRICLE: Left ventricle is at least moderately dilated. Perfusion study demonstrates a moderate sized, fixed lateral wall defect. On the resting study, there is no significant reversibility. A gated study is not available. CONCLUSION: Evidence of a dilated cardiomyopathy with a prior lateral wall myocardial infarction. There is no demonstrable reji-infarct ischemia. Recommend clinical correlation and echocardiographic assessment of left ventricular systolic function. [facility]# [id number] CA/NTS
--- NOTE | 2019-05-28 13:29 | Event Note ---
Date: 05/28/19 Patient had a thallium stress test today, which shows a dilated left ventricle, with a fixed lateral wall defect consistent with a prior myocardial infarction, no reversible ischemia. Stable from cardiac discharge on medical therapy. Recommend medical therapy and risk factor modification for coronary artery disease and chronic left ventricular systolic failure. Losartan, carvedilol, atorvastatin, aspirin, furosemide and spironolactone. Outpatient cardiac follow-up in 7 days.
[2019-05-28] MEDS ORDERED: COREG PO SCH (15:00)
[2019-05-28] MEDS ORDERED: COZAAR PO SCH (15:00)
[2019-05-28] MEDS ORDERED: ALDACTONE PO SCH (15:00)
--- NOTE | 2019-05-28 18:47 | Discharge Summary ---
Providers - Providers Date of Admission: 05/25/19 21:43 Date of discharge: 05/28/19 Attending physician: JAIR QUEZADA 05/25/19 21:48 Consult to Cardiology [CONS] Routine Consulting Provider: DEJON CORRIGAN Reason For Exam: CHF Primary care physician: LOAN REVIEW OFFICER Hospitalization Reason for admission: acute systolic heart failure, hypertension, tobacco use disorder, CAD. Condition: Stable Pertinent studies: Chest x-ray, echocardiogram showed ejection fraction of 20-25% with systolic dysfunction, Venous Doppler both lower extremities showed no evidence of DVT Lexiscan stress test that showed fixed defect Procedures: none Hospital course: 79 [facility] Resident with Obesity, HTN, [place], Nicotine Dependence, CAD S/P Stent Placement presents to ED for evaluation. Pt states that she has experienced generalized weakness, and leg swelling over the past 3 weeks with worsening symptoms over the past 3-4 days. Pt acknowledges decreased exercise tolerance, dypsnea on exertion, mild dypsnea at rest, as well as 2 episodes of chest discomfort over the past 3 days. Pt initially sought medical care at Urgent Care and was instructed to seek further care at [facility]. Pt transported to [facility] via private vehicle. Pt seen and evaluated in ED and found to have symptoms consistent with CHF Decompensation as well as Obesity Hypoventilation. Pt admitted to telemetry. Cardiology team consulted in ED. Pt symptoms improved with diuresis, and supplemental oxygen. Pt denies fever, chills, CP, Palpitations, Trauma, Productive cough, Skin Rash, or recent ill contacts. No prior admission for review. All medication listed at time of admission was reconciled. Chest x-ray shows no evidence of transient. Pulmonic congestion identified with mild hepatomegaly. Patient had 2 knee edema of the lower extremities. It was done. No evidence of DVT identified. Patient was commenced on oxygen nitroglycerin aspirin and morphine as well as diuresis is on beta blockers and ACEI. Echocardiogram showed ejection fraction of 22-25% with systolic dysfunction. There is a stress was done Fixed old lateral wall defect with dilated cardiomyopathy identified. Medical management was suggested. Therefore been discharged today to follow with primary care physician in 3-5 days and follow-up with car mover in 7 days. Condition on September. Disposition: TO HOME OR SELFCARE Time spent for discharge: 32 mins - Discharge Diagnoses (1) Systolic dysfunction with acute on chronic heart failure Status: Acute (2) CAD (coronary artery disease) Status: Acute Qualifiers: Associated angina: with stable angina (3) HTN (hypertension) Status: Acute Qualifiers: Hypertension type: essential hypertension Qualified Code(s): I10 - Essential (primary) hypertension (4) Left bundle branch block Status: Acute Core Measure Documentation - Palliative Care Palliative Care/ Comfort Measures: Not Applicable - Core Measures Any of the following diagnoses?: heart failure - Heart Failure Discharge Requirements DEONDRE/ARB for LVSD if EF <40%: Yes Beta isha at discharge: Yes Exam - Physical Exam Narrative exam: Constitutional: Well-nourished well-developed. In no distress Head: Normocephalic atraumatic Eyes: Pupils are equal round and reactive to light Nose: No enlarged turbinates, no septal deviation. Mouth: Moist mucous membranes. Neck: Supple no thyromegaly. No bruit. No JVD Heart: Regular rate and rhythm, S1-S2 normal. No rubs murmurs or gallop Lungs: Clear to auscultation bilaterally. no rales or rhonchi Abdomen: Soft, nontender. Bowel sound are present. Extremities: No edema, no cyanosis, no clubbing. Neuro: Alert oriented Oriented x3. No focal sensory or motor deficit. Skin: No rashes or hyperpigmented spots Musculoskeletal system: No joint pain or swelling Hematological: No petechia or subcutanous hemorrhages. Immunological: No multiple septic spots on the skin Lymphatic: No generalized lymphadenopathy Psychiatry: Euthymic. Calm. - Constitutional Vitals: Temp Pulse Resp BP Pulse Ox 99.1 F 68 18 149/50 90 05/28/19 16:09 05/28/19 16:09 05/28/19 16:09 05/28/19 16:09 05/28/19 16:09 Plan Activity: fall precautions Weight Bearing Status: Non-Weight Bearing Diet: low fat, low cholesterol, low salt Follow up with: KINGSTON ALLRED MD [Primary Care Provider] - 3-5 Days NICK YANG MD [Staff Physician] - 7 Days Prescriptions: Spironolactone [Aldactone] 100 mg PO QDAY #30 tablet Carvedilol [Coreg] 12.5 mg PO BID #60 tablet Losartan [Cozaar] 50 mg PO QDAY #30 tablet Aspirin EC [Halfprin EC] 81 mg PO QDAY #30 tablet Furosemide [Lasix TAB] 40 mg PO QDAY #30 tablet AtorvaSTATin [Lipitor] 20 mg PO QHS #30 tablet
[2019-05-28 21:20] VITALS: BP 138/62
[2019-05-29] MEDS ORDERED: LASIX PO SCH (10:00)
== END 2019-05-28 21:29 | disposition home or self-care (01) | DRG 292 ==
LOC: ED 13:59 → 4A 21:43
PROVIDERS: ADMIT Internal Medicine; ATTEND Family Medicine
DX: I11.0 Hypertensive heart disease with heart failure (principal); F17.203 Nicotine dependence unspecified, with withdrawal; E66.2 Morbid (severe) obesity with alveolar hypoventilation; I50.23 Acute on chronic systolic (congestive) heart failure; I42.0 Dilated cardiomyopathy; I44.7 Left bundle-branch block, unspecified; I25.119 Atherosclerotic heart disease of native coronary artery with unspecified angina pectoris; Z68.34 Body mass index [BMI] 34.0-34.9, adult; Z95.5 Presence of coronary angioplasty implant and graft; Z82.49 Family history of ischemic heart disease and other diseases of the circulatory system; Z88.8 Allergy status to other drugs, medicaments and biological substances; Z88.6 Allergy status to analgesic agent; I25.2 Old myocardial infarction
CPT/HCPCS: 36415; 71046; 78452; 80048; 80053; 81001; 82550; 82553; 82962; 83735; 83880; 84439; 84443; 84484; 85025; 85027; 85610; 85730; 93005; 93010; 93017; 93306; 93970; G0378; A9502; J0360; J1650; J1940; J2785